=== PATIENT | male | born 1955 | race Caucasian/White ===

== ENCOUNTER → 2016-07-21 | Outpatient (CLI) | payer BC ==
[2016-07-21 11:43] LABS: Basophils # (A) 0.1 k/uL (0-0.2); Basophils % (A) 1 %; CH 31.8; CHCM 33.7; Eosinophils # (A) 0.2 k/uL (0-0.7); Eosinophils % (A) 1 %; HCT 46.9 % (39.0-53.0); HDW 2.37; HGB 15.6 gm/dL (13.0-17.5); Luc # (Auto) 0.21; Luc % (Auto) 2; Lymphocytes # (A) 1.4 k/uL (1.0-4.8); Lymphocytes % (A) 14 %; MCH 31.4 pg (25.0-35.0); MCHC 33.2 g/dL (31.0-37.0); MCV 94.7 fL (80.0-100.0); Mean Platelet Volume 7.6; Monocytes # (A) 0.6 k/uL (0-1.0); Monocytes % (A) 6 %; Neutrophils # (A) 7.9 k/uL (1.3-7.7); Neutrophils % (A) 76 %; RBC 4.96 m/uL (4.30-5.90); RDW 12.6 % (11.5-15.5); WBC 10.5 k/uL (3.8-10.6); WBC (Perox) 10.61
[2016-07-21 11:51] LABS: Uric Acid 7.5 mg/dL (3.5-8.5)
[2016-07-21 11:54] LABS: Rheumatoid Factor, Qnt <9 IU/mL (<12)
[2016-07-21 12:58] LABS: Erythrocyte Sedimentation Rate 6 mm/hr (0-15)
== END | disposition home or self-care (01) ==
LOC: LABWHC1 11:17
PROVIDERS: ATTEND Podiatrist Foot & Ankle Surgery
DX: L08.9 Local infection of the skin and subcutaneous tissue, unspecified (principal); M19.079 Primary osteoarthritis, unspecified ankle and foot
CPT/HCPCS: 36415; 84550; 85025; 85652; 86038; 86431

== ENCOUNTER → 2020-07-03 | Outpatient (CLI) | payer MEDICARE ==
--- NOTE | 2020-07-03 08:12 | XR ---
EXAMINATION TYPE: XR foot complete LT DATE OF EXAM: 07/03/2020 CLINICAL HISTORY: pain TECHNIQUE: Frontal, lateral and oblique images of the left foot are obtained. COMPARISON: None. FINDINGS: There is no acute fracture/dislocation evident. The joint spaces appear within normal ren its. The overlying soft tissue appears unremarkable. IMPRESSION: There is no acute fracture or dislocation. ICD 10 NO FRACTURE, INITIAL EVALUATION
[2020-07-03 08:44] LABS: Basophils # (A) 0.1 k/uL (0-0.2); Basophils % (A) 1 %; Eosinophils # (A) 0.2 k/uL (0-0.7); Eosinophils % (A) 3 %; HGB 16.8 gm/dL (13.0-17.5); Lymphocytes # (A) 1.6 k/uL (1.0-4.8); Lymphocytes % (A) 20 %; MCH 31.3 pg (25.0-35.0); MCHC 33.6 g/dL (31.0-37.0); MCV 93.1 fL (80.0-100.0); Mean Platelet Volume 7.3; Monocytes # (A) 0.5 k/uL (0-1.0); Monocytes % (A) 7 %; Neutrophils # (A) 5.4 k/uL (1.3-7.7); Neutrophils % (A) 69 %; Platelet Count 324 k/uL (150-450); RBC 5.38 m/uL (4.30-5.90); WBC 7.9 k/uL (3.8-10.6)
[2020-07-03 08:53] LABS: Uric Acid 7.7 mg/dL (3.5-8.5)
[2020-07-03 09:10] LABS: C Reactive Protein <5.0 mg/L (<10.0)
[2020-07-03 09:48] LABS: Erythrocyte Sedimentation Rate 6 mm/hr (0-15)
--- NOTE | 2020-07-03 13:07 | NM ---
EXAMINATION TYPE: NM bone 3 phase DATE OF EXAM: 07/03/2020 COMPARISON: NONE HISTORY: M84.375 Stress fracture, left foot Triple phase bone scintigraphy was performed following the injection of 20.0 mCi Tc 99m MDP. Immedia te images and 4.5 hours post injection images acquired. FINDINGS: There is intense uptake involving the tarsal cuboid on all 3 phases of the study compatible with unde rlying fracture. No additional areas of abnormal uptake are seen. IMPRESSION: Findings suggest tarsal cuboid fracture.
[2020-07-03 18:36] LABS: Rheumatoid Factor, Qnt <4 IU/mL (0-15)
== END | disposition home or self-care (01) ==
LOC: RADNMMAIN 07:23
PROVIDERS: ATTEND Podiatrist Foot & Ankle Surgery
DX: M79.672 Pain in left foot (principal); M84.375G Stress fracture, left foot, subsequent encounter for fracture with delayed healing
CPT/HCPCS: 85652; 84550; 85025; 86140; 86431; 86038; 73630; 78315; A9503

== ENCOUNTER 2022-04-19 09:51 | Emergency (ER) | payer MEDICARE ==
[2022-04-19 10:01] VITALS: TEMP 98.1
[2022-04-19] MEDS ORDERED: MORPHINE SULFATE 4 MG/ML SYRINGE IVP STA (11:12)
[2022-04-19] MEDS ORDERED: SODIUM CHLORIDE 0.9% 1,000 ML IV ONE (11:44)
[2022-04-19 12:02] LABS: Basophils % (A) 1 %; Eosinophils # (A) 0.1 k/uL (0-0.7); Eosinophils % (A) 1 %; HCT 48.3 % (39.0-53.0); HGB 16.8 gm/dL (13.0-17.5); Lymphocytes # (A) 1.3 k/uL (1.0-4.8); Lymphocytes % (A) 15 %; MCH 31.7 pg (25.0-35.0); MCHC 34.8 g/dL (31.0-37.0); MCV 91.2 fL (80.0-100.0); Monocytes # (A) 0.5 k/uL (0-1.0); Monocytes % (A) 5 %; Neutrophils # (A) 6.9 k/uL (1.3-7.7); Neutrophils % (A) 78 %; Platelet Count 338 k/uL (150-450); RDW 12.3 % (11.5-15.5)
--- NOTE | 2022-04-19 12:03 | XR ---
EXAMINATION TYPE: XR hand complete RT DATE OF EXAM: 04/19/2022 COMPARISON: None HISTORY: Hand swelling base of third digit TECHNIQUE: 3 view right hand FINDINGS: Soft tissue swelling is over the metacarpal phalangeal joint region. No underlying fracture is evident. Mild diffuse joint space narrowing is present. An old fracture of the index finger metacarpal is likely present. Follow up exams can be performed 7-10 days acute trauma for continued pain. IMPRESSION: 1. No acute osseous abnormality. 2. Soft tissue swelling over the dorsum of the hand at the metacarpal phalangeal joint space region.
[2022-04-19 12:14] LABS: ALT 28 U/L (4-49); AST 27 U/L (17-59); African American GFR (CKD) >90 (>60 ml/min/1.73 sqM); Albumin 4.7 g/dL (3.5-5.0); Alkaline Phosphatase 81 U/L (38-126); Anion Gap 10 mmol/L; Blood Urea Nitrogen 10 mg/dL (9-20); C Reactive Protein 0.8 mg/dL (<1.0); Calcium 9.5 mg/dL (8.4-10.2); Carbon Dioxide 20 mmol/L (22-30); Chloride 107 mmol/L (98-107); Glucose 111 mg/dL (74-99); Non-African American GFR(CKD) >90 (>60 ml/min/1.73 sqM); Potassium 4.3 mmol/L (3.5-5.1); Sodium 137 mmol/L (137-145); Total Bilirubin 0.7 mg/dL (0.2-1.3); Total Protein 7.5 g/dL (6.3-8.2); Uric Acid 9.2 mg/dL (3.5-8.5)
[2022-04-19] MEDS ORDERED: DEXAMETHASONE SOD PHOSPHATE 10 MG/ML 1 ML VIAL IVP STA (12:38)
--- NOTE | 2022-04-19 12:38 | ED ---
General Adult HPI - General Chief complaint: Extremity Injury, Upper Stated complaint: rt hand pain Time Seen by Provider: 04/19/22 11:05 Source: patient Mode of arrival: ambulatory Limitations: no limitations - History of Present Illness Initial comments: Patient is a 66-year-old male with history of gout presenting with chief complaint of right hand pain. Patient has been having some pain and swelling in the right hand near the base of the third digit for a few days. He woke up today there was significant swelling at the base of the third digit and increased pain. No redness or warmth. No fever or chills. No nausea or vomiting. Patient has been taking his colchicine at home for 2 days with no improvement in symptoms. He denies any injury or trauma. - Related Data Home Medications Medication Instructions Recorded Confirmed Multivitamin [Men's Multi-Vitamin] 1 each PO DAILY 07/23/15 08/20/15 Acetaminophen Tab [Tylenol Tab] 650 mg PO Q4-6H PRN 08/20/15 08/20/15 Previous Rx's Medication Instructions Recorded Amoxicillin/Potassium Clav 1 tab PO Q12HR #20 tab 08/21/15 [Augmentin 875-125 Tablet] Indomethacin [Indocin] 50 mg PO TID 7 Days #21 capsule 04/19/22 Sulfamethox-Tmp 800-160Mg [Bactrim 1 tab PO Q12HR 7 Days #14 tab 04/19/22 DS 800-160 mg] Allergies Allergy/AdvReac Type Severity Reaction Status Date / Time Penicillins Allergy Unknown Verified 04/19/22 10:01 Review of Systems ROS Statement: Those systems with pertinent positive or pertinent negative responses have been documented in the HPI. ROS Other: All systems not noted in ROS Statement are negative. Past Medical History Past Medical History: No Reported History History of Any Multi-Drug Resistant Organisms: None Reported Additional Past Surgical History / Comment(s): tooth extraction. Past Anesthesia/Blood Transfusion Reactions: No Reported Reaction Past Psychological History: No Psychological Hx Reported Smoking Status: Never smoker Past Alcohol Use History: Occasional Past Drug Use History: None Reported - Past Family History Brother(s) Family Medical History: Cancer Additional Family Medical History / Comment(s): Pancreatic cancer General Exam Limitations: no limitations General appearance: alert, in no apparent distress Head exam: Present: atraumatic, normocephalic, normal inspection Eye exam: Present: normal appearance Neck exam: Present: normal inspection Respiratory exam: Present: normal lung sounds bilaterally. Absent: respiratory distress, wheezes, rales, rhonchi, stridor Cardiovascular Exam: Present: regular rate, normal rhythm, normal heart sounds. Absent: systolic murmur, diastolic murmur, rubs, gallop, clicks Right Hand Wrist exam: Present: tenderness, swelling. Absent: erythema (area does not feel hot to touch) Neuro motor exam: Present: wrist extension intact, thumb opposition intact, thumb IP flexion intact, thumb adduction intact, fingers 2-5 abduction intact Vascular: Absent: vascular compromise Neurological exam: Present: alert, oriented X3, CN II-XII intact Psychiatric exam: Present: normal affect, normal mood Skin exam: Present: warm, dry, intact, normal color. Absent: rash Course Vital Signs 04/19/22 04/19/22 09:58 12:00 Temperature 98.1 F Pulse Rate 60 Respiratory 18 Rate Blood Pressure 202/105 173/92 O2 Sat by Pulse 99 Oximetry Medical Decision Making - Medical Decision Making Patient is a 66-year-old male history of gout presenting with chief complaint of right hand pain. No injury or trauma. On examination there is tenderness and swelling over the base of the third digit, no erythema, wound is not extremely warm on palpation. No fever or chills. CBC shows no leukocytosis or anemia. CRP is 0.8. ESR sent out. Uric acid is 9.2. Lactic acid is 0.9. X-ray of the hand by my interpretation shows no acute osseous abnormality, there is soft tissue swelling noted over the dorsum of the hand. Patient is educated on these findings, symptoms are likely due to gout. Patient is given a dose of Decadron here in the ER and is prescribed indomethacin 3 times a day for 7 days. Prescription is sent for Bactrim, patient is instructed to take antibiotic in the event of worsening symptoms. Patient has an appointment with Dr. Kumar this , I encouraged him to keep that appointment for reevaluation.Follow-up with PCP. Report back to ER with any new or worsening symptoms. Discussed return parameters and answered all questions. Patient conveyed verbal understanding and agreed to the plan. I discussed this case in detail with my attending Dr. Osborne - Lab Data Result diagrams: 04/19/22 11:37 04/19/22 11:37 Lab Results 04/19/22 04/19/22 04/19/22 Range/Units 11:37 11:37 11:37 WBC 9.0 (3.8-10.6) k/uL RBC 5.30 (4.30-5.90) m/uL Hgb 16.8 (13.0-17.5) gm/dL Hct 48.3 (39.0-53.0) % MCV 91.2 (80.0-100.0) fL MCH 31.7 (25.0-35.0) pg MCHC 34.8 (31.0-37.0) g/dL RDW 12.3 (11.5-15.5) % Plt Count 338 (150-450) k/uL MPV 8.0 Neutrophils % 78 % Lymphocytes % 15 % Monocytes % 5 % Eosinophils % 1 % Basophils % 1 % Neutrophils # 6.9 (1.3-7.7) k/uL Lymphocytes # 1.3 (1.0-4.8) k/uL Monocytes # 0.5 (0-1.0) k/uL Eosinophils # 0.1 (0-0.7) k/uL Basophils # 0.0 (0-0.2) k/uL Sodium 137 (137-145) mmol/L Potassium 4.3 (3.5-5.1) mmol/L Chloride 107 (98-107) mmol/L Carbon Dioxide 20 L (22-30) mmol/L Anion Gap 10 mmol/L BUN 10 (9-20) mg/dL Creatinine 0.74 (0.66-1.25) mg/dL Est GFR (CKD-EPI)AfAm >90 (>60 ml/min/1.73 sqM) Est GFR (CKD-EPI)NonAf >90 (>60 ml/min/1.73 sqM) Glucose 111 H (74-99) mg/dL Plasma Lactic Acid Jaun 0.9 (0.7-2.0) mmol/L Uric Acid 9.2 H (3.5-8.5) mg/dL Calcium 9.5 (8.4-10.2) mg/dL Total Bilirubin 0.7 (0.2-1.3) mg/dL AST 27 (17-59) U/L ALT 28 (4-49) U/L Alkaline Phosphatase 81 (38-126) U/L C-Reactive Protein 0.8 (<1.0) mg/dL Total Protein 7.5 (6.3-8.2) g/dL Albumin 4.7 (3.5-5.0) g/dL Disposition Clinical Impression: Gout Disposition: HOME SELF-CARE Condition: Good Instructions (If sedation given, give patient instructions): Low Purine Diet (ED), Gout (ED) Additional Instructions: Follow-up with PCP in one to 2 days. Report back to ER with any worsening symptoms. Take medication as prescribed. Begin taking antibiotics if you develop fever, redness, or any other worsening of symptoms. Prescriptions: Sulfamethox-Tmp 800-160Mg [Bactrim DS 800-160 mg] 1 tab PO Q12HR 7 Days #14 tab Indomethacin [Indocin] 50 mg PO TID 7 Days #21 capsule Is patient prescribed a controlled substance at d/c from ED?: No Referrals: Kody Del Castillo Jr, [Primary Care Provider] - 1-2 days Time of Disposition: 12:32
[2022-04-19 13:39] LABS: Erythrocyte Sedimentation Rate 5 mm/hr (0-15)
[2022-04-19 14:44] VITALS: BP 170/90; PULSE 65; RESP 16
== END 2022-04-19 13:00 | disposition home or self-care (01) ==
LOC: EC 09:51
DX: M10.9 Gout, unspecified (principal); Z88.0 Allergy status to penicillin
CPT/HCPCS: 36415; 80053; 85652; 83605; 84550; 85025; 86140; 87040; 73130; 99283; 96374; 96375; 96361; J2270; J1100; 99284

== ENCOUNTER → 2023-05-30 | Outpatient (CLI) | payer MEDICARE ==
--- NOTE | 2023-05-30 16:37 | XR ---
EXAMINATION TYPE: XR cervical spine w flex/ext DATE OF EXAM: 05/30/2023 COMPARISON: None HISTORY: Left arm prestigious TECHNIQUE: 5 view cervical spine supplemented with flexion and extension views in the sagittal plane FINDINGS: Prevertebral space is normal. Posterior spinal lamellar line is intact. Vertebral body alig nment is preserved through flexion and extension and neutral positions. Mild posterior disc space narrowing is present C4-5 C5-6 C6-7. Mild foraminal narrowing is present at C4-5 on the right C5-6 on the left. Remaining foramen are patent. Odontoid appears unremarkable IMPRESSION: 1. Mild degenerative disc changes mid cervical spine discussed above. 2. Mild foraminal narrowing present right C4-5 and left C5-6.
== END | disposition home or self-care (01) ==
LOC: RADXRMAIN 10:21
PROVIDERS: ATTEND Family Medicine
DX: M50.321 Other cervical disc degeneration at C4-C5 level (principal); M99.71 Connective tissue and disc stenosis of intervertebral foramina of cervical region; R20.2 Paresthesia of skin
CPT/HCPCS: 72052

== ENCOUNTER 2023-12-28 14:34 | Emergency (ER) | payer MEDICARE | END 2023-12-28 15:42 | disposition home or self-care (01) | LOC: EC 14:34 | CPT/HCPCS: 69200; 99282 ==

== ENCOUNTER 2024-11-01 08:44 | Inpatient (IN) | payer MEDICARE ==
[2024-11-01 09:14] LABS: Basophils # (A) 0.07 10*3/uL (0.00-0.10); Basophils % (A) 0.8 %; Eosinophils # (A) 0.19 10*3/uL (0.04-0.35); Eosinophils % (A) 2.3 %; HCT 47.3 % (39.6-50.0); HGB 16.2 g/dL (13.0-17.0); Lymphocytes # (A) 2.04 10*3/uL (0.90-5.00); Lymphocytes % (A) 24.7 %; MCH 31.6 pg (27.0-32.0); MCHC 34.2 g/dL (32.0-37.0); MCV 92.4 fL (80.0-97.0); Mean Platelet Volume 9.4 fL (9.5-12.2); Monocytes # (A) 0.58 10*3/uL (0.20-1.00); Neutrophils # (A) 5.33 10*3/uL (1.80-7.70); Neutrophils % (A) 64.7 %; Platelet Count 328 10*3/uL (140-440); RBC 5.12 10*6/uL (4.40-5.60); RDW 13.1 % (11.5-14.5); WBC 8.25 10*3/uL (4.50-10.00)
[2024-11-01 09:24] LABS: INR 0.9 (<1.2); Partial Thromboplastin Time 24.4 sec (22.0-30.0); Prothrombin Time 10.3 sec (10.0-12.5)
[2024-11-01 09:26] LABS: ALT 28 U/L (4-49); AST 29 U/L (17-59); African American GFR (CKD) >90 (>60 ml/min/1.73 sqM); Albumin 4.4 g/dL (3.5-5.0); Alkaline Phosphatase 70 U/L (38-126); Anion Gap 10 mmol/L; Blood Urea Nitrogen 17 mg/dL (9-20); Calcium 9.5 mg/dL (8.4-10.2); Carbon Dioxide 24 mmol/L (22-30); Chloride 104 mmol/L (98-107); Glucose 106 mg/dL (74-99); Non-African American GFR(CKD) 85 (>60 ml/min/1.73 sqM); Potassium 4.3 mmol/L (3.5-5.1); Sodium 138 mmol/L (137-145); Total Bilirubin 0.6 mg/dL (0.2-1.3); Total Protein 6.9 g/dL (6.3-8.2)
--- NOTE | 2024-11-01 09:38 | XR ---
EXAMINATION TYPE: XR chest 2V DATE OF EXAM: 11/01/2024 9:18 AM COMPARISON: Chest radiographs from 05/18/2010 CLINICAL INDICATION: Male, 68 years old with history of Chest Pain; [facility] TECHNIQUE: XR chest 2V Frontal and lateral views of the chest. FINDINGS: Lungs/Pleura: There is no evidence of pleural effusion, focal consolidation, or pneumothorax. Pulmonary vascularity: Unremarkable. Heart/mediastinum: Cardiomediastinal silhouette is unremarkable. Musculoskeletal: No acute osseous pathology. IMPRESSION: No acute cardiopulmonary disease/process. [facility], , 11/01/2024 9:35 AM
[2024-11-01] MEDS ORDERED: HEPARIN SODIUM 1,000 UN/ML (10ML VL) IV PRN (10:12)
[2024-11-01] MEDS ORDERED: NALOXONE 0.4 MG/ML 1 ML VIAL IV PRN (10:45)
[2024-11-01] MEDS ORDERED: ONDANSETRON 4 MG/2 ML VIAL IVP PRN (10:45)
[2024-11-01] MEDS: ASPIRIN 81 MG PO STA (11:02)
--- NOTE | 2024-11-01 11:11 | ED ---
General Adult HPI - General Chief complaint: Chest Pain Stated complaint: Chest pain Time Seen by Provider: 11/01/24 10:00 Source: patient, RN notes reviewed, old records reviewed Mode of arrival: ambulatory Limitations: no limitations - History of Present Illness Initial comments: Patient is a 68-year-old male presents emergency department complaint of chest pain. Past medical history significant for hypertension. Has been under more stress lately as his has been hospitalized. States that over the last 2 weeks he has been feeling off and has noticed when he does exertional activity he gets significant chest pain. States it is substernal and does not radiate. Unknown regarding nausea or vomiting or diaphoresis regarding it. States that it resolves with rest but it is severe 10 out of 10 pain in his present. Currently has no chest pain. Went to visit his doctor and told him this who sent him to the ER for admission for cardiac evaluation. He currently has no chest pain. Workup was started in triage. I evaluated patient in the waiting room. He has a history of high blood pressure, but otherwise denies any chest p ain, shortness of breath, abdominal pain, nausea, vomiting. States the chest pain is only present with exertion and never at rest. Resolves with rest. Presents for further evaluation at this time. - Related Data Home Medications Medication Instructions Recorded Confirmed allopurinoL [Zyloprim] 300 mg PO DAILY 11/01/24 11/01/24 lisinopriL [Zestril] 5 mg PO DAILY 11/01/24 11/01/24 Allergies Allergy/AdvReac Type Severity Reaction Status Date / Time Penicillins Allergy Unknown Verified 11/01/24 14:04 Review of Systems ROS Statement: Those systems with pertinent positive or pertinent negative responses have been documented in the HPI. Review of Systems: CONST: Denies fever EYES: Denies blurry vision ENT: Denies nasal congestion C/V: Denies current chest pain RESP: Denies shortness of breath GI: Denies abdominal pain : Denies dysuria SKIN: Denies rash. MSK: Denies joint pain. NEURO: Denies headache ROS Other: All systems not noted in ROS Statement are negative. Past Medical History Past Medical History: No Reported History History of Any Multi-Drug Resistant Organisms: None Reported Additional Past Surgical History / Comment(s): tooth extraction. Past Anesthesia/Blood Transfusion Reactions: No Reported Reaction Past Psychological History: No Psychological Hx Reported Smoking Status: Never smoker Past Alcohol Use History: Occasional Past Drug Use History: None Reported - Past Family History Brother(s) Family Medical History: Cancer Additional Family Medical History / Comment(s): Pancreatic cancer General Exam - General Exam Comments Initial Comments: General: Appears in no acute distress. HEAD: Normal with no signs of head trauma. EYES: PERRLA, EOMI, conjunctiva normal, no discharge. ENT: Hearing grossly intact, normal oropharynx. RESPIRATORY: Clear breath sounds bilaterally. No wheezes, rales, or rhonchi. C/V: Regular rate and rhythm. S1 and S2 auscultated, no edema, peripheral pulses 2+ and intact throughout ABD: Abd is soft, nontender, nondistended EXT: Normal range of motion, no obvious deformity SKIN: No rashes or lesions observed on exposed skin. NEURO: Alert and oriented x 4. Limitations: no limitations Course Vital Signs 11/01/24 11/01/24 11/01/24 08:45 11:22 13:00 Temperature 97.9 F 98.0 F Pulse Rate 60 57 L 58 L Respiratory 20 22 22 Rate Blood Pressure 196/101 153/90 146/81 O2 Sat by Pulse 98 100 98 Oximetry 11/01/24 14:12 Temperature Pulse Rate 61 Respiratory 22 Rate Blood Pressure 143/98 O2 Sat by Pulse 97 Oximetry Medical Decision Making - Medical Decision Making Was pt. sent in by a medical professional or institution (, PA, RAFTSMAN, urgent care, hospital, or longterm...) When possible be specific @ -Spoke with patient's PCP Dr. Del Castillo who sent the patient in for evaluation and admission for cardiac evaluation Did you speak to anyone other than the patient for history (EMS, parent, family, police, friend...)? What history was obtained from this source @ -I spoke with patient's daughter who assist with patient's past medical history. Did you review nursing and triage notes (agree or disagree)? Why? @ -I reviewed and agree with nursing and triage notes Were old charts reviewed (outside hosp., previous admission, EMS record, old EKG, old radiological studies, urgent care reports/EKG's, longterm records)? Report findings @ -EKG from July 2015 with no significant acute change. Differential Diagnosis (chest pain, altered mental status, abdominal pain women, abdominal pain men, vaginal bleeding, weakness, fever, dyspnea, syncope, headache, dizziness, GI bleed, back pain, seizure, CVA, palpatations, mental health, musculoskeletal)? @ -Differential Chest Pain: Stable Angina, Unstable Angina, STEMI, NSTEMI Aortic Dissection, Pneumothorax, Musculoskeletal, Esophageal Spasm GERD, Cholecystitis, Pancreatitis, Zoster, this is not meant to be an all-inclusive list. EKG interpreted by me (3pts min.). @ -As above X-rays interpreted by me (1pt min.). @ -Chest x-ray reveals no obvious acute cardiopulmonary process. CT interpreted by me (1pt min.). @ -None done U/S interpreted by me (1pt. min.). @ -None done What testing was considered but not performed or refused? (CT, X-rays, U/S, labs)? Why? @ -None What meds were considered but not given or refused? Why? @ -None Did you discuss the management of the patient with other professionals (professionals i.e. , PA, RAFTSMAN, lab, RT, psych nurse, social work associate, content coordinator, teacher, human resources officer, adult protective caseworker)? Give summary @ -Discussed with admitting provider, Dr. Del Castillo who accepted the admission. Was smoking cessation discussed for >3mins.? @ -No Was critical care preformed (if so, how long)? @ -Yes, 32 minutes Were there social determinants of health that impacted care today? How? (Homelessness, low income, unemployed, alcoholism, drug addiction, transportation, low edu. Level, literacy, decrease access to med. care, [facility], rehab)? @ -No Was there de-escalation of care discussed even if they declined (Discuss DNR or withdrawal of care, Hospice)? DNR status @ -No What co-morbidities impacted this encounter? (DM, HTN, Smoking, COPD, CAD, Cancer, CVA, ARF, Chemo, Hep., AIDS, mental health diagnosis, sleep apnea, morbid obesity)? @ -Hypertension Was patient admitted / discharged? Hospital course, mention meds given and route, prescriptions, significant lab abnormalities, going to OR and other pertinent info. @ -Patient presents for admission for cardiac evaluation. Has been having exer tional chest pain on and off for the last 2 weeks. Currently is chest pain- free. Patient originally had workup started in the waiting room. I evaluated the patient after workup was completed. Vital signs are within acceptable limits. Laboratory studies remarkable for an elevated troponin of 1.01. EKG shows chronic findings dating back to July 2015 with J-point elevation but no obvious acute ischemic process. Chest x-ray unremarkable. I updated the patient at this time and he will be admitted. He is given 324 mg of aspirin. He is started on a heparin drip. He is made NPO. He is started on IV fluids. Echo ordered. Consult placed to cardiology. I spoke with the admitting provider, Dr. Del Castillo who accepted the admission. He remains chest pain-free at this time. Undiagnosed new problem with uncertain prognosis? @ -No Drug Therapy requiring intensive monitoring for toxicity (Heparin, Nitro, Insulin, Cardizem)? @ -No Were any procedures done? @ -No Diagnosis/symptom? @ -NSTEMI Acute, or Chronic, or Acute on Chronic? @ -Acute Uncomplicated (without systemic symptoms) or Complicated (systemic symptoms)? @ -Complicated Side effects of treatment? @ -No Exacerbation, Progression, or Severe Exacerbation? @ -No Poses a threat to life or bodily function? How? (Chest pain, USA, DC, pneumonia, PE, COPD, DKA, ARF, appy, cholecystitis, CVA, Diverticulitis, Homicidal, Suici niko, threat to staff... and all critical care pts) @ -Yes - Lab Data Result diagrams: 11/01/24 08:48 11/01/24 08:48 Lab Results 11/01/24 11/01/24 11/01/24 Range/Units 08:48 08:48 08:48 WBC 8.25 (4.50-10.00) 10*3/uL RBC 5.12 (4.40-5.60) 10*6/uL Hgb 16.2 (13.0-17.0) g/dL Hct 47.3 (39.6-50.0) % MCV 92.4 (80.0-97.0) fL MCH 31.6 (27.0-32.0) pg MCHC 34.2 (32.0-37.0) g/dL Plt Count 328 (140-440) 10*3/uL MPV 9.4 L (9.5-12.2) fL Immature Gran % (Auto) 0.5 % Neutrophils % 64.7 % Lymphocytes % 24.7 % Monocytes % 7.0 % Eosinophils % 2.3 % Basophils % 0.8 % Immature Gran # 0.04 (0.00-0.04) 10*3/uL Neutrophils # 5.33 (1.80-7.70) 10*3/uL Lymphocytes # 2.04 (0.90-5.00) 10*3/uL Monocytes # 0.58 (0.20-1.00) 10*3/uL Eosinophils # 0.19 (0.04-0.35) 10*3/uL Basophils # 0.07 (0.00-0.10) 10*3/uL PT 10.3 (10.0-12.5) sec INR 0.9 (<1.2) APTT 24.4 (22.0-30.0) sec Sodium 138 (137-145) mmol/L Potassium 4.3 (3.5-5.1) mmol/L Chloride 104 (98-107) mmol/L Carbon Dioxide 24 (22-30) mmol/L Anion Gap 10 mmol/L BUN 17 (9-20) mg/dL Creatinine 0.91 (0.66-1.25) mg/dL Est GFR (CKD-EPI)AfAm >90 (>60 ml/min/1.73 sqM) Est GFR (CKD-EPI)NonAf 85 (>60 ml/min/1.73 sqM) Glucose 106 H (74-99) mg/dL Calcium 9.5 (8.4-10.2) mg/dL Magnesium 2.0 (1.6-2.3) mg/dL Total Bilirubin 0.6 (0.2-1.3) mg/dL AST 29 (17-59) U/L ALT 28 (4-49) U/L Alkaline Phosphatase 70 (38-126) U/L Troponin I (0.000-0.034) ng/mL Total Protein 6.9 (6.3-8.2) g/dL Albumin 4.4 (3.5-5.0) g/dL 11/01/24 Range/Units 08:48 WBC (4.50-10.00) 10*3/uL RBC (4.40-5.60) 10*6/uL Hgb (13.0-17.0) g/dL Hct (39.6-50.0) % MCV (80.0-97.0) fL MCH (27.0-32.0) pg MCHC (32.0-37.0) g/dL Plt Count (140-440) 10*3/uL MPV (9.5-12.2) fL Immature Gran % (Auto) % Neutrophils % % Lymphocytes % % Monocytes % % Eosinophils % % Basophils % % Immature Gran # (0.00-0.04) 10*3/uL Neutrophils # (1.80-7.70) 10*3/uL Lymphocytes # (0.90-5.00) 10*3/uL Monocytes # (0.20-1.00) 10*3/uL Eosinophils # (0.04-0.35) 10*3/uL Basophils # (0.00-0.10) 10*3/uL PT (10.0-12.5) sec INR (<1.2) APTT (22.0-30.0) sec Sodium (137-145) mmol/L Potassium (3.5-5.1) mmol/L Chloride (98-107) mmol/L Carbon Dioxide (22-30) mmol/L Anion Gap mmol/L BUN (9-20) mg/dL Creatinine (0.66-1.25) mg/dL Est GFR (CKD-EPI)AfAm (>60 ml/min/1.73 sqM) Est GFR (CKD-EPI)NonAf (>60 ml/min/1.73 sqM) Glucose (74-99) mg/dL Calcium (8.4-10.2) mg/dL Magnesium (1.6-2.3) mg/dL Total Bilirubin (0.2-1.3) mg/dL AST (17-59) U/L ALT (4-49) U/L Alkaline Phosphatase (38-126) U/L Troponin I 1.010 H* (0.000-0.034) ng/mL Total Protein (6.3-8.2) g/dL Albumin (3.5-5.0) g/dL - EKG Data -: EKG Interpreted by Me EKG Comments: 12-lead Electrocardiogram Interpretation Note EKG was reviewed and interpreted by myself. 12-lead ECG performed at 0852 is interpreted by me as revealing sinus bradycardia at a rate of 58 beats per minute. Burgin is normal. AR interval is 167 ms, QRS durations 88 ms, QTc is 391 ms. Patient does have somewhat diffuse J-point elevation in the precordial as well as inferior leads which is seen on prior EKGs from 2016. There were no obv ious acute ST or T wave abnormalities to suggest myocardial ischemia or injury. R wave progression across the precordium was satisfactory. 12-lead Electrocardiogram Interpretation Note EKG was reviewed and interpreted by myself. 12-lead ECG performed at 1110 is interpreted by me as revealing sinus bradycardia at a rate of 56 beats per minute. Burgin is normal. AR interval is 164 ms, QRS duration is 106 ms, QTc is 409 ms.. Redemonstration of the J-point elevations seen throughout that seems c hronic when compared with EKG from 2016. No obvious dynamic changes when compared with EKG from earlier. There were no ST or T wave abnormalities to suggest myocardial ischemia or injury. R wave progression across the precordium was satisfactory.. Critical Care Time Critical Care Time: Yes Total Critical Care Time: 32 Disposition Clinical Impression: Acute non-ST elevation myocardial infarction (NSTEMI) Disposition: ADMITTED IP TO THIS HOSP Condition: Stable Time of Disposition: 10:55
[2024-11-01] MEDS: HEPARIN SODIUM 1,000 UN/ML (10ML VL) IV ONE (11:16)
[2024-11-01] MEDS: HEPARIN SOD,PORK IN 0.45% NACL 25,000 UNIT in 0.45% NACL 1 250ML.BAG IV SCH (11:17)
[2024-11-01] MEDS: SODIUM CHLORIDE 0.9% 1,000 ML IV SCH (11:21)
--- NOTE | 2024-11-01 14:50 | P.HPIM ---
History of Present Illness Chief Complaint: Chest pain This is a pleasant 68-year-old gentleman with past medical history significant for hypertension ,under significant stress as his with cancer hospitalized. Reports he has had on and off nonradiating midsternal chest pain over the last couple of weeks, worsened on Monday when patient was mowing the lawn in the hot 84 degrees heat.reports he developed 10 out of 10 midsternal chest pain accompanied by diaphoresis and shortness of breath .reports worsened by exertional activity, relieved with rest. He proceeded inside, as his pain increased to 10/10, reclined back in his recliner, and drank some ice cold water. Within an hour, pain had subsided. Does not recall nausea or vomiting. evaluated by his PCP Dr. Del Castillo this morning and patient was transferred by EMS to the ER for further cardiac evaluation. On admission patient was hypertensive with a blood pressure 196/101. currently denies chest pain, palpitations or shortness of breath. Troponins are elevated at 1.010, 0.783 .EKG reported sinus bradycardia. Chest x-ray reported no acute cardiopulmonary disease process. H ematology, coagulation unremarkable. Electrolytes, renal function stable. Patient does disclose that years ago he did have a normal stress test during a cardiac workup prior to having knee surgery. Review of Systems ROS Statement: Those systems with pertinent positive or pertinent negative responses have been documented in the HPI. ROS Other: All systems not noted in ROS Statement are negative. Past Medical History Past Medical History: No Reported History History of Any Multi-Drug Resistant Organisms: None Reported Additional Past Surgical History / Comment(s): tooth extraction. Past Anesthesia/Blood Transfusion Reactions: No Reported Reaction Past Psychological History: No Psychological Hx Reported Smoking Status: Never smoker Past Alcohol Use History: Occasional Past Drug Use History: None Reported - Past Family History Brother(s) Family Medical History: Cancer Additional Family Medical History / Comment(s): Pancreatic cancer Medications and Allergies Home Medications Medication Instructions Recorded Confirmed Type allopurinoL [Zyloprim] 300 mg PO DAILY 11/01/24 11/01/24 History lisinopriL [Zestril] 5 mg PO DAILY 11/01/24 11/01/24 History Allergies Allergy/AdvReac Type Severity Reaction Status Date / Time Penicillins Allergy Unknown Verified 11/01/24 14:04 Physical Exam Vitals: Vital Signs Temp Pulse Resp BP Pulse Ox 11/01/24 14:12 61 22 143/98 97 11/01/24 13:00 58 L 22 146/81 98 11/01/24 11:22 98.0 F 57 L 22 153/90 100 11/01/24 08:45 97.9 F 60 20 196/101 98 Intake and Output 10/31/24 11/01/24 11/01/24 22:59 06:59 14:59 Other: Weight 72.121 kg PHYSICAL EXAM: VITAL SIGNS: [Reviewed] GENERAL: Pleasant, alert and oriented x 3, no acute distress HEENT: Normocephalic, atraumatic, conjunctivae normal. eyes normal. NECK: Supple, no JVD. No thyroid enlargement. No LNs CARDIOVASCULAR: S1, S2, regular rhythm and rate. No murmur RESPIRATION: Unlabored, equal air entry, essentially clear to auscultation. ABDOMEN: Soft, nondistended, nontender . No guarding. no masses palpable. No ascites, No hepatosplenomegaly.Bowel sounds heard. LEGS: No edema. no swelling NERVOUS SYSTEM: Cranial N 2-12 grossly normal. No focal deficits. Strength and sensation grossly intact. Skin: Warm and dry, no rash Results CBC & Chem 7: 11/01/24 08:48 11/01/24 08:48 Labs: Abnormal Lab Results - Last 24 Hours (Table) 11/01/24 11/01/24 11/01/24 Range/Units 08:48 08:48 08:48 MPV 9.4 L (9.5-12.2) fL Glucose 106 H (74-99) mg/dL Troponin I 1.010 H* (0.000-0.034) ng/mL 11/01/24 Range/Units 11:23 MPV (9.5-12.2) fL Glucose (74-99) mg/dL Troponin I 0.783 H* (0.000-0.034) ng/mL Assessment and Plan Assessment: Acute NSTEMI, troponins 1.010, 0.783, in a patient has been under significant personal stress Hypertension Plan: Continue on current medication regimen ,monitoring and symptomatic treatment. Telemetry monitoring,received aspirin, anticoagulated on heparin drip, IV fluid hydration. Echo ordered. NPO,cardiology consult in place with recommendations pending. The impression and plan of care has been dictated as directed. : I performed a history and examination of this patient, discussed the same with the dictator. I agree with the dictator's note ,documented as a scribe. Any additional findings or plans will be noted.
--- NOTE | 2024-11-01 18:25 | CA ---
Transthoracic Echo Report Name: Guido Garcia Age: 68 Gender: M : 1955 Exam Date: 11/01/2024 12:53 Exam Location: [place] [facility] Ht (in): 63 Wt (lb): 159 Ordering Physician: Matthew Leon MD Attending/Referring Phys: Dial Lathe Operator Isa Sunshine RDCS Procedure CPT: Indications: nstemi Cardiac Hx: Technical Quality: Fair Contrast 1: Total Dose (mL): Contrast 2: Total Dose (mL): MEASUREMENTS (Male / Female) Normal Values 2D ECHO LV Diastolic Diameter PLAX 3.3 cm 4.2 - 5.9 / 3.9 - 5.3 cm LV Systolic Diameter PLAX 2.3 cm IVS Diastolic Thickness 1.4 cm 0.6 - 1.0 / 0.6 - 0.9 cm LVPW Diastolic Thickness 1.2 cm 0.6 - 1.0 / 0.6 - 0.9 cm LV Relative Wall Thickness 0.8 RV Internal Dim ED PLAX 3.7 cm LA Systolic Diameter LX 3.5 cm 3.0 - 4.0 / 2.7 - 3.8 cm LV Diastolic Volume MOD 4C 99.3 cm??? LV Systolic Volume MOD 4C 45.8 cm??? LV Ejection Fraction MOD 4C 53.8 % LV Cardiac Index MOD 4C 1741.1 cm???/min???m??? LV Diastolic Length 4C 8.7 cm LV Systolic Length 4C 7.2 cm LV Diastolic Volume MOD 2C 93.5 cm??? LV Systolic Volume MOD 2C 45.1 cm??? LV Ejection Fraction MOD 2C 51.8 % LV Cardiac Index MOD 2C 1577.6 cm???/min???m??? LV Diastolic Length 2C 8.6 cm LV Systolic Length 2C 7.1 cm LA Volume 54.6 cm??? 18 - 58 / 22 - 52 cm??? LA Volume Index 30.1 cm???/m??? 16 - 28 cm???/m??? M-MODE Aortic Root Diameter MM 3.5 cm AV Cusp Separation MM 2.4 cm DOPPLER AV Peak Velocity 109.4 cm/s AV Peak Gradient 4.8 mmHg MV Area PHT 2.8 cm??? Mitral E Point Velocity 106.3 cm/s Mitral A Point Velocity 92.8 cm/s Mitral E to A Ratio 1.1 MV Deceleration Time 267.8 ms TR Peak Velocity 222.1 cm/s TR Peak Gradient 19.7 mmHg Right Ventricular Systolic Press 24.1 mmHg FINDINGS Left Ventricle Left ventricular ejection fraction is estimated at 55-60 %. Normal left ventricular systolic function with no obvious regional wall motion abnormalities. Mildly increased left ventricular wall thickness. Right Ventricle Mild right ventricular dilatation. Right ventricular systolic pressure within normal limits. Right Atrium Normal right atrial size. No right atrial thrombus or mass seen. Left Atrium Mildly increased left atrial volume. No left atrial thrombus or mass present. Mitral Valve Structurally normal mitral valve. No mitral stenosis, or prolapse.trace to mild mitral regurgitation. Mitral annular calcification. Aortic Valve Trileaflet aortic valve. No aortic valve stenosis or regurgitation. Tricuspid Valve Structurally normal tricuspid valve. No tricuspid stenosis, regurgitation or prolapse. Pulmonic Valve Pulmonic valve not well visualized. No pulmonic regurgitation. Pericardium No pericardial effusion. Aorta Normal size aortic root and proximal ascending aorta. CONCLUSIONS 1. Normal left ventricular size and systolic function 2. Trace to mild mitral regurgitation Previewed by: Dr. Cory Varela MD (Electronically Signed) Final Date: 01 November 2024 18:25
[2024-11-02] MEDS: lisinopriL 5 MG TAB PO SCH (01:15)
[2024-11-02] MEDS ORDERED: ALPRAZolam 0.25 MG TAB PO PRN (08:19)
[2024-11-02] MEDS ORDERED: NITROGLYCERIN SL TABS 0.4 MG TAB SUBLINGUAL PRN (08:19)
[2024-11-02] MEDS: METOPROLOL TARTRATE 25 MG TAB PO SCH (08:43)
[2024-11-02] MEDS: ASPIRIN 325 MG TAB PO STA (08:43)
[2024-11-02] MEDS: lisinopriL 10 MG TAB PO SCH (08:43)
[2024-11-02] MEDS: ATORVASTATIN 80 MG TAB PO STA (08:43)
[2024-11-02] MEDS: SODIUM CHLORIDE 0.9% 1,000 ML in EMPTY BAG 1 BAG IV SCH ×2 (08:43→14:14)
[2024-11-02] MEDS: ASPIRIN 81 MG PO SCH (08:47)
[2024-11-02 09:26] LABS: Basophils # (A) 0.03 10*3/uL (0.00-0.10); Basophils % (A) 0.4 %; Eosinophils # (A) 0.19 10*3/uL (0.04-0.35); Eosinophils % (A) 2.5 %; HCT 43.6 % (39.6-50.0); Lymphocytes # (A) 1.65 10*3/uL (0.90-5.00); Lymphocytes % (A) 21.7 %; MCH 31.8 pg (27.0-32.0); MCHC 34.4 g/dL (32.0-37.0); MCV 92.6 fL (80.0-97.0); Mean Platelet Volume 9.6 fL (9.5-12.2); Monocytes # (A) 0.42 10*3/uL (0.20-1.00); Monocytes % (A) 5.5 %; Neutrophils # (A) 5.29 10*3/uL (1.80-7.70); Neutrophils % (A) 69.4 %; Platelet Count 271 10*3/uL (140-440); RBC 4.71 10*6/uL (4.40-5.60); RDW 13.2 % (11.5-14.5); WBC 7.62 10*3/uL (4.50-10.00)
--- NOTE | 2024-11-02 09:31 | P.CRDCN ---
History of Present Illness History of present illness: HISTORY OF PRESENT ILLNESS: This is a 68-year-old male with no significant past medical history. Patient does not follow with a designer/writer. We have been asked to see the patient in consultation for non-STEMI. Patient examined at the bedside. Patient states on Monday he was mowing the lawn when he started to have chest discomfort. He states that the pain was in the middle of his chest. He also reports feeling diaphoretic and short of breath. He states it was hot that day though so he was not sure if it was related to the weather. He did go inside and rested and had relief of his pain. He states he has been under a lot of stress lately as his is also currently hospitalized. Patient was found to have elevated troponins and was started on IV heparin. At the time of examination, patient denies any chest pain or pressure. DIAGNOSTICS: - EKG reveals sinus mechanism with no signs of acute ischemia. - Chest xray negative for acute process. - Laboratory data: WBC 8.25. Hemoglobin 16.2. Platelet count 328. Sodium 138. Potassium 4.3. BUN 17. Creatinine 0.91. Troponin 1.010. 0.783. - Current home cardiac medications include lisinopril 5 mg daily - 2D echo obtained this admission reveals EF 55 to 60%, trace to mild mitral regurgitation REVIEW OF SYSTEMS: At the time of my exam: CONSTITUTIONAL: Denies fever or chills. HEENT: Denies blurred vision, vision changes, or eye pain. Denies hemoptysis CARDIOVASCULAR: Denies chest pain. Denies orthopnea. Denies PND. Denies palpitations RESPIRATORY: Denies shortness of breath. GASTROINTESTINAL: Denies abdominal pain. Denies nausea or vomiting. HEMATOLOGIC: Denies bleeding disorders. GENITOURINARY: Denies any blood in urine. SKIN: Denies pruitis. Denies rash. PHYSICAL EXAM: VITAL SIGNS: Reviewed. GENERAL: Well-developed in no acute distress. HEENT: Head is normocephalic. Pupils are equal, round. Sclerae anicteric. Mucous membranes of the mouth are moist. Neck supple. No JVD or thyromegaly LUNGS: Respirations even and unlabored. Lungs essentially clear to auscultation bilaterally. HEART: Regular rate and rhythm. S1 and S2 heard. ABDOMEN: Soft. Nondistended. Nontender. EXTREMITIES: Normal range of motion. No clubbing or cyanosis. Peripheral pulses intact. No lower extremity edema NEUROLOGIC: Awake and alert. Oriented x 3. ASSESSMENT: Non-STEMI Hypertensive emergency, improving History of hypertension PLAN: Obtain 2D echo to assess cardiac structure and function Continue IV heparin Add aspirin and atorvastatin Increase lisinopril to 10 mg daily for optimal blood pressure control Add metoprolol tartrate 25 mg twice a day Check hemoglobin A1c and lipid panel Patient undergo cardiac catheterization today with Dr. Acuña Further recommendations pending patient course Nurse practitioner note has been reviewed by physician. Signing provider agrees with the documented findings, assessment, and plan of care documented by COATER HELPER as a scribe. Past Medical History Past Medical History: No Reported History History of Any Multi-Drug Resistant Organisms: None Reported Additional Past Surgical History / Comment(s): tooth extraction. Past Anesthesia/Blood Transfusion Reactions: No Reported Reaction Past Psychological History: No Psychological Hx Reported Smoking Status: Never smoker Past Alcohol Use History: Occasional Past Drug Use History: None Reported - Past Family History Brother(s) Family Medical History: Cancer Additional Family Medical History / Comment(s): Pancreatic cancer Medications and Allergies Home Medications Medication Instructions Recorded Confirmed Type allopurinoL [Zyloprim] 300 mg PO DAILY 11/01/24 11/01/24 History lisinopriL [Zestril] 5 mg PO DAILY 11/01/24 11/01/24 History Allergies Allergy/AdvReac Type Severity Reaction Status Date / Time Penicillins Allergy Unknown Verified 11/01/24 14:04 Physical Exam Vitals: Vital Signs Temp Pulse Resp BP Pulse Ox 11/01/24 11:22 98.0 F 57 L 22 153/90 100 11/01/24 08:45 97.9 F 60 20 196/101 98 Intake and Output 10/31/24 11/01/24 11/01/24 22:59 06:59 14:59 Other: Weight 72.121 kg Results 11/02/24 08:12 11/01/24 08:48 Cardiac Enzymes 11/01/24 11/01/24 11/01/24 Range/Units 08:48 08:48 11:23 AST 29 (17-59) U/L Troponin I 1.010 H* 0.783 H* (0.000-0.034) ng/mL Coagulation 11/01/24 Range/Units 08:48 PT 10.3 (10.0-12.5) sec APTT 24.4 (22.0-30.0) sec CBC 11/01/24 Range/Units 08:48 WBC 8.25 (4.50-10.00) 10*3/uL RBC 5.12 (4.40-5.60) 10*6/uL Hgb 16.2 (13.0-17.0) g/dL Hct 47.3 (39.6-50.0) % Plt Count 328 (140-440) 10*3/uL Comprehensive Metabolic Panel 11/01/24 Range/Units 08:48 Sodium 138 (137-145) mmol/L Potassium 4.3 (3.5-5.1) mmol/L Chloride 104 (98-107) mmol/L Carbon Dioxide 24 (22-30) mmol/L BUN 17 (9-20) mg/dL Creatinine 0.91 (0.66-1.25) mg/dL Glucose 106 H (74-99) mg/dL Calcium 9.5 (8.4-10.2) mg/dL AST 29 (17-59) U/L ALT 28 (4-49) U/L Alkaline Phosphatase 70 (38-126) U/L Total Protein 6.9 (6.3-8.2) g/dL Albumin 4.4 (3.5-5.0) g/dL Current Medications Generic Name Dose Route Start Last Admin Trade Name Freq PRN Reason Stop Dose Admin Heparin Sodium (Porcine) 0 unit 11/01/24 10:12 Heparin Sodium 1,000 Un/Ml (10ml Vl) IV PER PROTOCOL PRN Low PTT Protocol Heparin Sodium/Sodium Chloride 250 mls @ 8.655 mls/hr 11/01/24 10:15 11/01/24 11:17 25,000 unit/ Sodium Chloride IV 12 units/kg/hr .Q24H KIRILL 8.655 mls/hr Administration Protocol 12 UNITS/KG/HR Sodium Chloride 1,000 mls @ 130 mls/hr 11/01/24 10:45 11/01/24 11:21 Saline 0.9% IV 130 mls/hr .Q7H42M KIRILL Administration Naloxone HCl 0.2 mg 11/01/24 10:45 Naloxone 0.4 Mg/Ml 1 Ml Vial IV Q2M PRN Opioid Reversal Ondansetron HCl 4 mg 11/01/24 10:45 Ondansetron 4 Mg/2 Ml Vial IVP Q8HR PRN Nausea And Vomiting Intake and Output 10/31/24 11/01/24 11/01/24 22:59 06:59 14:59 Other: Weight 72.121 kg Patient Weight 11/02/24 06:59 Weight 72.121 kg 11/01/24 08:48 11/01/24 08:48
[2024-11-02 09:36] LABS: INR 0.9 (<1.2); Prothrombin Time 10.5 sec (10.0-12.5)
[2024-11-02] MEDS: IV FLUID CONTINUATION 1,000 ML IV ONE (09:45)
[2024-11-02 09:46] LABS: ALT 25 U/L (4-49); AST 23 U/L (17-59); African American GFR (CKD) >90 (>60 ml/min/1.73 sqM); Albumin 3.6 g/dL (3.5-5.0); Alkaline Phosphatase 75 U/L (38-126); Anion Gap 6 mmol/L; Blood Urea Nitrogen 8 mg/dL (9-20); Calcium 8.7 mg/dL (8.4-10.2); Carbon Dioxide 25 mmol/L (22-30); Chloride 106 mmol/L (98-107); Glucose 91 mg/dL (74-99); Non-African American GFR(CKD) >90 (>60 ml/min/1.73 sqM); Sodium 137 mmol/L (137-145); Total Bilirubin 0.7 mg/dL (0.2-1.3); Total Protein 5.9 g/dL (6.3-8.2)
[2024-11-02] MEDS: MIDAZOLAM 2 MG/2 ML VIAL IVP ONE (10:06)
[2024-11-02] MEDS: fentaNYL (PF) 50 MCG/ML 2 ML AMP IVP ONE ×2 (10:06)
[2024-11-02] MEDS: LIDOCAINE 1% INJ 10MG/ML (20 ML MDV) SQ ONE (10:08)
[2024-11-02] MEDS: HEPARIN SODIUM,PORCINE 10,000 UNIT in SODIUM CHLORIDE 0.9% 1,000 ML IRRIGATION ONE (10:12)
[2024-11-02] MEDS: HEPARIN SODIUM,PORCINE (1 ML) 2,500 UNIT in SODIUM CHLORIDE 0.9% 250 ML IRRIGATION ONE (10:12)
[2024-11-02] MEDS: VERAPAMIL SYRINGE (5 MG/10 ML) INTRAARTER ONE (10:14)
[2024-11-02] MEDS: HEPARIN SODIUM 1,000 UN/ML (10ML VL) IVP ONE (10:21)
[2024-11-02] MEDS: TICAGRELOR 90 MG TAB PO ONE (10:36)
[2024-11-02] MEDS: NITROGLYCERIN 1000MCG/10ML SYRINGE INTRACORON ONE ×3 (10:54→11:47)
[2024-11-02] MEDS: IOPAMIDOL-370 100ML BTL INJ ONE ×2 (11:14→11:55)
[2024-11-02] MEDS: NITROGLYCERIN-D5W PMX 50 MG in DEXTROSE/WATER 1 250ML.BAG IV ONE (11:47)
[2024-11-02] MEDS ORDERED: HEPARIN SODIUM 1,000 UN/ML (10ML VL) IV PRN (12:47)
--- NOTE | 2024-11-02 12:47 | CC ---
CARDIAC CATHETERIZATION REPORT INDICATION: Acute non ST-segment elevation [place]. PROCEDURE NOTE: After obtaining informed consent, left heart catheterization and coronary angiogram were performed via the right radial artery using standard Jonna catheters. The patient tolerated the procedure well without any obvious immediate complications. The patient received moderate conscious sedation. Total sedation time was 20 minutes. Right radial artery access was obtained using Seldinger technique, 6-Lebanese sheath was placed. Catheters and wires were floated into the ascending aorta under fluoroscopic guidance. The patient received verapamil and heparin per protocol. FINDINGS: 1. Hemodynamics: Left ventricular end-diastolic pressure is 14 to 16 mm. There is no significant gradient across the aortic valve. 2. Left ventriculogram: Left ventriculogram is not performed. 3. Angiographic data: a.Right coronary artery: Right coronary artery is a large dominant vessel that shows a focal 90% stenosis involving the right coronary artery. b.Left main coronary artery is a normal-sized vessel and is free of stenosis. Divides into left anterior descending coronary artery and circumflex coronary artery. LAD shows a focal 80% to 90% stenosis in its midportion. c.Circumflex coronary artery shows mild nonobstructive disease. CONCLUSION: Severe two-vessel coronary artery disease as described above. PLAN: I reviewed angiographic data with Dr. Uribe, the on-call dental hygiene teacher, who will perform angioplasty with stent placement of both these vessels. MMODL / IJN: [id number] /
[2024-11-02] MEDS ORDERED: ATROPINE SULFATE 0.1 MG/ML 10ML SYRINGE IV PRN (12:53)
[2024-11-02] MEDS ORDERED: MAG HYDROX/AL HYDROX/SIMETH 30 ML CUP PO PRN (12:53)
[2024-11-02] MEDS ORDERED: ZOLPIDEM 5 MG TAB PO PRN (12:53)
[2024-11-02] MEDS ORDERED: RX INFO: IV CONTRAST WAS GIVEN 1 EACH MISC MISCELLANE PRN (12:53)
--- NOTE | 2024-11-02 12:53 | P.PRCINT ---
Percutaneous Coronary Int. - Percutaneous Coronary Intervention Percutaneous Coronary Intervention: PROCEDURES PERFORMED: Bilateral coronary angiography, PCI mid RCA with 3.5 x 33 mm Xience FAISAL, postdilated with a 3.5 mm noncompliant balloon, PCI mid LAD with a 3.0 x 33 mm Xience FAISAL, postdilated with a 3.0 mm noncompliant balloon, intravascular ultrasound RCA and LAD. INDICATION: Non-STEMI CONSENT:I have discussed the risks, benefits and alternative therapies for the above-mentioned procedure and for both sedation/analgesia as well as necessary blood product administration, if indicated, as they pertain to this patient. The patient has indicated understanding and acceptance of the risks and procedures discussed. PROCEDURE: After the risks, benefits and alternatives of the above mentioned procedure explained in detail with the patient, informed consent was obtained. Patient was taken to the catheterization lab and prepped and draped in usual fashion. A 6-[place] sheath had been placed in the right radial artery. The decision was made to perform PCI of the RCA and LAD. A 6 [place] AL 0.75 guide was used to engage the RCA. A 0.014 BMW wire was advanced to the distal RCA. Predilation was performed with 2.5 mm balloon. Next intravascular ultrasound was performed which showed reference vessel approximately 3.25 to 3.5 mm. A 3.5 x 33 mm drug-eluting stent was placed in the mid RCA. The stent was postdilated with a 3.5 mm noncompliant balloon. Final angiograms were performed. Repeat intravascular ultrasound was performed and showed no dissection with well-expanded stent. Preintervention there was 90% stenosis and CECI-3 flow and postintervention there was less than 10% stenosis and CECI-3 flow. Next the decision was made to perform PCI of the LAD. A 6 [place] CLS 3.5 guide was used to engage the left main. A 0.014 BMW wire was advanced in the distal LAD. Predilation was performed with a 2.5 x 12 mm balloon. There was small caliber diagonal 1 and diagonal 2 branches however appeared to be less than 2 mm and unlikely to be able to stent or significantly balloon. Intravascular ultrasound was performed which showed diffuse disease of entire proximal LAD and attempted as normal to normal as possible with most normal segment being 3.0 mm. A 3.0 x 33 mm drug-eluting stent was placed in the mid LAD. This did assisted the diagonal 2 branch and patient did have some chest pain with jailing. The stent was postdilated with a 3.0 mm noncompliant balloon. Final angiograms were performed. Preintervention there was 90% stenosis with CECI-3 flow and postintervention there was less than 10% stenosis with CECI-3 flow. The right radial sheath was removed and a TR band was placed with hemostasis achieved. The patient tolerated the procedure well. Patient was transported back to the post catheterization holding area in stable condition. Conscious Sedation: Patient was monitored under the direct supervision of myself for conscious sedation using Versed and fentanyl for a total duration of 66 minutes HEMODYNAMICS: Aorta: 105/72 SELECTIVE CORONARY ARTERIOGRAPHY: LEFT MAIN: The left main is a large caliber vessel which bifurcates into the LAD and circumflex. There is no significant stenosis. LEFT ANTERIOR DESCENDING CORONARY ARTERY: LAD is a large caliber vessel which wraps around to the apex. There is diffuse 30 to 40% proximal LAD stenosis noted more significantly on intravascular ultrasound however more focal 90% mid LAD stenosis at the level of diagonal 1 and diagonal 2 branch. Otherwise there are mild luminal irregularities. LEFT CIRCUMFLEX CORONARY ARTERY: Left circumflex is a moderate caliber vessel with mild luminal irregularities. OM1 has a small caliber 70% mid stenosis. Circumflex appears to be codominant. RIGHT CORONARY ARTERY: The right coronary artery is a large caliber vessel which gives off a PDA branch and is the dominant vessel. There is a focal 90% mid RCA stenosis and otherwise diffuse mild 10 to 20% stenosis. FINAL IMPRESSION: 1. CAD as described above including 90% mid LAD and 90% mid RCA stenosis with small caliber OM1 70% stenosis 2. Status post PCI mid RCA with 3.5 x 33 mm Xience FAISAL, postdilated with a 3.5 mm noncompliant balloon, PCI mid LAD with a 3.0 x 33 mm Xience FAISAL, postdilated with a 3.0 mm noncompliant balloon PLAN: 1. Aggressive risk factor modification per most recent ACC/AHA guidelines. 2. Continue dual antiplatelets with aspirin and Brilinta for 12 months 3. Likely medical therapy of the OM1 however consider further assessment if still has angina 4. Patient having chest pain related to jailing of diagonal branch. Continue with medical therapy however continue with heparin drip and nitro drip for 24 hours and monitor response.
[2024-11-02] MEDS ORDERED: HEPARIN SOD,PORK IN 0.45% NACL 25,000 UNIT in 0.45% NACL 1 250ML.BAG IV SCH (13:00)
[2024-11-02] MEDS: HEPARIN SODIUM 1,000 UN/ML (10ML VL) IV ONE (13:30)
[2024-11-02] MEDS: ALPRAZolam 0.5 MG TAB PO PRN (14:42)
--- NOTE | 2024-11-02 17:01 | CT ---
EXAMINATION TYPE: CT brain wo con DATE OF EXAM: 11/02/2024 4:46 PM COMPARISON: None. CLINICAL INDICATION: Male, 68 years old with history of post heart cath, dizziness, vision loss left lower, post heart cath dizziness TECHNIQUE: Brain: Axial CT images of the brain were obtained with coronal and sagittal reformats created and rev iewed. Contrast used: None. Oral contrast used: None. CT DLP: 1098.4 mGycm, Automated exposure control for dose reduction was used. FINDINGS: Brain: Extra-axial spaces: No abnormal extra-axial fluid collections. Ventricular system: Within normal limits Cerebral parenchyma: Calcified right basal ganglia lesion unknown chronicity. No acute intraparenchym al hemorrhage or mass effect. The infante-white junction is well differentiated. Cerebellum: Unremarkable. Mass effect: No evidence of midline shift. Intracranial vasculature: Atherosclerotic calcifications of the intracranial vessels. Soft tissues: Normal. Calvarium/osseous structures: No depressed skull fracture. Paranasal sinuses and mastoid air cells: Mild scattered paranasal sinus disease. Visualized orbits: Orbital contents are intact. IMPRESSION: No acute intracranial process. [facility], , 11/02/2024 4:58 PM
[2024-11-02] MEDS: METOPROLOL TARTRATE 12.5 MG TAB PO SCH (21:30)
[2024-11-02] MEDS: TICAGRELOR 90 MG TAB PO SCH (21:30)
[2024-11-03] MEDS ORDERED: HEPARIN SODIUM,PORCINE (1 ML) 2,500 UNIT in SODIUM CHLORIDE 0.9% 250 ML IRRIGATION PRN (07:00)
[2024-11-03] MEDS ORDERED: HEPARIN SODIUM,PORCINE 10,000 UNIT in SODIUM CHLORIDE 0.9% 1,000 ML IRRIGATION PRN (07:00)
[2024-11-03 07:40] LABS: Basophils # (A) 0.05 10*3/uL (0.00-0.10); Basophils % (A) 0.5 %; Eosinophils # (A) 0.15 10*3/uL (0.04-0.35); Eosinophils % (A) 1.5 %; HCT 42.2 % (39.6-50.0); HGB 14.8 g/dL (13.0-17.0); Lymphocytes # (A) 1.34 10*3/uL (0.90-5.00); Lymphocytes % (A) 13.7 %; MCH 31.6 pg (27.0-32.0); MCHC 35.1 g/dL (32.0-37.0); MCV 90.2 fL (80.0-97.0); Mean Platelet Volume 9.8 fL (9.5-12.2); Monocytes # (A) 0.62 10*3/uL (0.20-1.00); Monocytes % (A) 6.3 %; Neutrophils % (A) 77.7 %; Platelet Count 286 10*3/uL (140-440); RBC 4.68 10*6/uL (4.40-5.60); RDW 13.1 % (11.5-14.5); WBC 9.79 10*3/uL (4.50-10.00)
[2024-11-03 07:53] LABS: INR 0.9 (<1.2); Prothrombin Time 10.5 sec (10.0-12.5)
--- NOTE | 2024-11-03 09:49 | P.PN ---
Subjective HISTORY OF PRESENT ILLNESS: This is a 68-year-old male with no significant past medical history. 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 We have been asked to see the patient in consultation for non-STEMI. Patient examined at the bedside. Patient states on Monday he was mowing the lawn when he started to have chest discomfort. He states that the pain was in the middle of his chest. He also reports feeling diaphoretic and short of breath. He states it was hot that day though so he was not sure if it was related to the weather. He did go inside and rested and had relief of his pain. He states he has been under a lot of stress lately as his is also currently hospitalized. Patient was found to have elevated troponins and was started on IV heparin. At the time of examination, patient denies any chest pain or pressure. DIAGNOSTICS: - EKG reveals sinus mechanism with no signs of acute ischemia. - Chest xray negative for acute process. - Laboratory data: WBC 8.25. Hemoglobin 16.2. Platelet count 328. Sodium 138. Potassium 4.3. BUN 17. Creatinine 0.91. Troponin 1.010. 0.783. - Current home cardiac medications include lisinopril 5 mg daily - 2D echo obtained this admission reveals EF 55 to 60%, trace to mild mitral regurgitation 11/03/2024 Patient is status postcardiac catheterization revealing 90% mid LAD, 90% mid RCA stenosis and OM1 70% stenosis. Patient underwent PCI of the mid RCA and PCI of the mid LAD. Patient continued to have chest pain after his cardiac catheterization and was put on IV heparin and IV nitro. This morning the patient denies any chest pain or pressure. She denies any shortness of breath. Patient is anxious to be discharged home. Echocardiogram completed revealing ej ection fraction 55 to 60%, no obvious regional wall motion abnormalities, trace to mild mitral regurgitation PHYSICAL EXAM: VITAL SIGNS: Reviewed. GENERAL: Well-developed in no acute distress. HEENT: Head is normocephalic. Pupils are equal, round. Sclerae anicteric. Mucous membranes of the mouth are moist. Neck supple. No JVD or thyromegaly LUNGS: Respirations even and unlabored. Lungs essentially clear to auscultation bilaterally. HEART: Regular rate and rhythm. S1 and S2 heard. ABDOMEN: Soft. Nondistended. Nontender. EXTREMITIES: Normal range of motion. No clubbing or cyanosis. Peripheral pulses intact. No lower extremity edema NEUROLOGIC: Awake and alert. Oriented x 3. ASSESSMENT: Non-STEMI Status post cardiac catheterization with PCI to mid RCA and mid LAD Ongoing chest pain secondary to jailing of diagonal branch Hypertensive emergency, improving History of hypertension PLAN: Discontinue IV heparin. Begin subcu heparin Discontinue nitro infusion. Begin Imdur. Continue additional cardiac medications including aspirin, Lipitor, lisinopril, metoprolol, and Brilinta Continue to monitor patient for additional 24 hours Possible discharge home tomorrow if patient remains chest pain-free Further recommendations pending patient course Nurse practitioner note has been reviewed by physician. Signing provider agrees with the documented findings, assessment, and plan of care documented by LAND COMMISSIONER as a scribe. Objective - Vital Signs Vital signs: Vital Signs Temp 97.7 F 11/03/24 04:00 Pulse 62 11/03/24 04:00 Resp 16 11/03/24 04:00 BP 132/75 11/03/24 04:00 Pulse Ox 96 11/03/24 04:00 FiO2 Intake & Output 11/02/24 11/03/24 11/03/24 18:59 06:59 18:59 Intake Total 1055.63 66.37 480 Balance 1055.63 66.37 480 Weight 67 kg Intake: IV 872 Intake, IV Titration 183.63 66.37 Amount Heparin Sod,Pork in 0.45% 183.63 66.37 NaCl 25,000 unit In 0.45 % NaCl 1 250ml.bag @ 12 UNITS/KG/HR 8.655 mls/hr IV .Q24H [facility] Rx#: [id number] Oral 480 Other: Voiding Method Toilet Toilet # Voids 1 1 - Labs CBC & Chem 7: 11/03/24 07:11 11/02/24 08:12 Labs: Abnormal Lab Results - Last 24 Hours (Table) 11/02/24 11/02/24 11/03/24 Range/Units 08:12 18:41 07:11 APTT 63.1 H 35.7 H (22.0-30.0) sec BUN 8 L (9-20) mg/dL Total Protein 5.9 L (6.3-8.2) g/dL
[2024-11-03 09:59] VITALS: RESP 18
[2024-11-03] MEDS: ISOSORBIDE MONONITRATE ER 30 MG TAB.ER.24H PO SCH (10:13)
--- NOTE | 2024-11-03 12:34 | P.PN ---
Subjective Progress Note Date: 11/03/24 Principal diagnosis: Chest pain ,coronary artery disease Patient status post cardiac cath with angioplasty to vessels with stent placement patient is awake alert vital signs are stable patient is currently afebrile Objective - Vital Signs Vital signs: Vital Signs Temp 97.7 F 11/03/24 12:00 Pulse 66 11/03/24 12:00 Resp 18 11/03/24 12:00 BP 78/51 11/03/24 12:00 Pulse Ox 100 11/03/24 12:00 FiO2 Intake & Output 11/02/24 11/03/24 11/03/24 18:59 06:59 18:59 Intake Total 1055.63 66.37 585.735 Balance 1055.63 66.37 585.735 Weight 67 kg Intake: IV 872 Intake, IV Titration 183.63 66.37 105.735 Amount Heparin Sod,Pork in 0.45% 183.63 66.37 105.735 NaCl 25,000 unit In 0.45 % NaCl 1 250ml.bag @ 12 UNITS/KG/HR 8.655 mls/hr IV .Q24H [facility] Rx#: [id number] Oral 480 Other: Voiding Method Toilet Toilet Toilet # Voids 1 1 - Exam General: [Patient awake, alert and oriented times 3. Patient in no acute distress.] HEENT: [PERRL. EOMI. No pharyngeal erythema or exudate.] Neck: [No adenopathy.] Cardiac: [Heart regular in rate and rhythm. No S3. No S4. No clicks, rubs. No murmur.] Lungs: [Clear to auscultation bilaterally.] Abdomen: [No mass. No organomegaly. Bowel sounds presnt and normoactive in all 4 quadrants.] Extremes: [No edema no cyanosis no claudication normal pulses] : Normal male genitalia Musculoskeletal: [No joint erythema, edema or tenderness.] Skin: [No rash.] Neurologic: [No lateralizing deficits. CN II - XII grossly intact.] Lymphatic: [No adenopathy.] - Labs CBC & Chem 7: 11/03/24 07:11 11/02/24 08:12 Labs: Abnormal Lab Results - Last 24 Hours (Table) 11/02/24 11/03/24 Range/Units 18:41 07:11 APTT 63.1 H 35.7 H (22.0-30.0) sec Assessment and Plan (1) Acute non-ST elevation myocardial infarction (NSTEMI) Narrative/Plan: Status post angioplasty with stent placement Current Visit: Yes Status: Acute Code(s): I21.4 - NON-ST ELEVATION (NSTEMI) MYOCARDIAL INFARCTION SNOMED Code(s): 829424072 (2) Abdominal pain Narrative/Plan: Consistent with diverticular disease Current Visit: No Status: Acute Code(s): R10.9 - UNSPECIFIED ABDOMINAL PAIN SNOMED Code(s): 40155967 (3) Diverticulitis Narrative/Plan: Will workup as outpatient Current Visit: No Status: Acute Code(s): K57.92 - DVTRCLI OF INTEST, PART UNSP, W/O PERF OR ABSCESS W/O BLEED SNOMED Code(s): 638948085 Plan: Status post PTCA with stent placement 2 vessels Time with Patient: Greater than 30
[2024-11-03] MEDS: SODIUM CHLORIDE 0.9% 500 ML 500 ML IV ONE (12:43)
[2024-11-03 13:08] LABS: Basophils # (A) 0.04 10*3/uL (0.00-0.10); Basophils % (A) 0.4 %; Eosinophils # (A) 0.23 10*3/uL (0.04-0.35); HCT 42.3 % (39.6-50.0); HGB 14.4 g/dL (13.0-17.0); Lymphocytes # (A) 1.37 10*3/uL (0.90-5.00); Lymphocytes % (A) 12.2 %; MCH 31.6 pg (27.0-32.0); MCV 92.8 fL (80.0-97.0); Mean Platelet Volume 9.7 fL (9.5-12.2); Monocytes % (A) 7.1 %; Neutrophils # (A) 8.77 10*3/uL (1.80-7.70); Neutrophils % (A) 77.9 %; Platelet Count 339 10*3/uL (140-440); RBC 4.56 10*6/uL (4.40-5.60); RDW 13.2 % (11.5-14.5); WBC 11.26 10*3/uL (4.50-10.00)
[2024-11-03 13:25] LABS: Potassium 4.3 mmol/L (3.5-5.1)
--- NOTE | 2024-11-03 14:27 | P.CNNES ---
History of Present Illness Consult date: 11/03/24 Reason for Consult: Vision loss, left lower periphery, dizziness, flashes of light, status post History of Present Illness: The patient is a 68-year-old male who was seen in neurologic consultation on November 03, 2024, in collaboration with Patria Tobar, via teleneurology. History is obtained from the patient. The patient presented to the emergency department because of chest pain. He underwent cardiac catheterization. Apparently following the cardiac catheterization the patient had reported headache, chest pain, colored, wavy lines in his left eye. He states that he initially noticed it the left lower corner of the vision from his left eye then when he turned his left eye, to the right this abnormal object would move to the right. The patient denies similar visual symptoms involving his right eye. The patient denies a history of migraine headaches and migraine aura. The patient states that his headache which was occurring simultaneously, was located in the frontal aspect of his head. The patient reports that the headache itself lasted for about 15 minutes and the visual symptoms lasted for approximately 1 hour. The patient states that he subsequently went to sleep and the symptoms resolved. Until the time of our examination, the patient denies return of his visual symptoms. During the examination, the patient noted a white, small curved line, in the lower half of the vision from his left eye. The patient reported pain in his eye, when looking to the left. The patient's initial headache occurred while he was receiving nitroglycerin. The patient denies a history of floaters and similar visual symptoms. He denies other associated symptoms. There is no reported weakness, numbness or ataxia. No difficulty with speech. CT scan of the brain was performed, associated with the symptoms. There was no reported evidence of acute hemorrhage or infarct. Past Medical History Past Medical History: No Reported History History of Any Multi-Drug Resistant Organisms: None Reported Additional Past Surgical History / Comment(s): tooth extraction. Past Anesthesia/Blood Transfusion Reactions: No Reported Reaction Past Psychological History: No Psychological Hx Reported Smoking Status: Never smoker Past Alcohol Use History: Occasional Past Drug Use History: None Reported - Past Family History Brother(s) Family Medical History: Cancer Additional Family Medical History / Comment(s): Pancreatic cancer Medications and Allergies Home Medications Medication Instructions Recorded Confirmed Type allopurinoL [Zyloprim] 300 mg PO DAILY 11/01/24 11/01/24 History lisinopriL [Zestril] 5 mg PO DAILY 11/01/24 11/01/24 History Allergies Allergy/AdvReac Type Severity Reaction Status Date / Time Penicillins Allergy Unknown Verified 11/01/24 14:04 Physical Examination - Vital Signs Vital Signs: Vital Signs Temp Pulse Pulse Resp BP Pulse Ox 11/03/24 04:00 97.7 F 62 16 132/75 96 11/03/24 01:14 16 11/02/24 23:05 98.4 F 68 16 111/72 98 11/02/24 20:00 97.9 F 58 L 65 16 113/66 98 11/02/24 16:38 58 L 16 115/77 98 11/02/24 15:38 62 16 115/77 98 11/02/24 14:38 63 16 104/69 98 11/02/24 14:08 63 16 126/69 96 11/02/24 14:00 62 16 11/02/24 13:38 62 16 123/71 98 11/02/24 13:23 45 L 18 125/72 98 11/02/24 13:08 52 L 18 108/50 97 11/02/24 12:53 48 L 18 107/69 99 11/02/24 12:00 59 L 59 L 18 134/77 97 Intake and Output 11/02/24 11/03/24 11/03/24 22:59 06:59 14:59 Intake Total 66.37 480 Balance 66.37 480 Intake: Intake, IV Titration 66.37 Amount Heparin Sod,Pork in 0.45% 66.37 NaCl 25,000 unit In 0.45 % NaCl 1 250ml.bag @ 12 UNITS/KG/HR 8.655 mls/hr IV .Q24H [facility] Rx#: [id number] Oral 480 Other: Voiding Method Toilet Toilet # Voids 0 1 Weight 67 kg General: The patient is reclining in the bed, well-nourished, well-developed and in no acute distress HEENT: Head is atraumatic, normocephalic. Fundus not visualized. There is no scleral icterus. Mucous membranes are moist. Neck: Supple without carotid bruits Heart: Regular rate and rhythm Lungs: No obvious shortness of breath or cough Extremities: Without edema Neurological examination Mental status: The patient is awake, alert and oriented x 3. Speech is clear. There is no dysarthria or aphasia. Cranial nerves: Pupils are equal at 3 mm and reactive. Visual meyer are full to confrontation. There is no nystagmus. Facial sensation is intact. There is no facial asymmetry. Hearing is grossly intact. Uvula and palate are midline. Shoulder shrug is symmetric. Tongue protrudes midline. Motor: Strength is 5/5 in the bilateral upper and lower extremities. Sensation: Intact to light touch throughout. There is no extinction with double simultaneous stimulation. Coordination: Ugxiqd-ur-[id number], rapid alternating movements and mrtw-px-tbqe testing are intact. There is no pronator drift. Deep tendon reflexes: 2+/4+ throughout. Gait: Not assessed Results CT scan of the brain images have been personally viewed. I agree with the radiology report - Laboratory Findings CBC and BMP: 11/03/24 12:48 11/03/24 12:48 Abnormal Lab Findings: Abnormal Labs 11/01/24 11/01/24 11/01/24 08:48 08:48 08:48 MPV 9.4 L APTT BUN Glucose 106 H Troponin I 1.010 H* Total Protein 11/01/24 11/01/24 11/01/24 11:23 16:14 16:14 MPV APTT 54.7 H BUN Glucose Troponin I 0.783 H* 0.755 H* Total Protein 11/02/24 11/02/24 11/03/24 08:12 18:41 07:11 MPV APTT 63.1 H 35.7 H BUN 8 L Glucose Troponin I Total Protein 5.9 L Assessment and Plan Assessment: 1. Vision abnormalities, left eye. The patient has a normal neurological examination. There are no focal or lateralizing findings on exam. I am concer hannah that the patient visual symptoms are specifically related to his-possible floaters versus retinal detachment versus posterior vitreous tear 2. Chest pain-NSTEMI, status post cardiac catheterization with stent placement 3. Hypertensive urgency-blood pressure in the emergency department 196/ Plan: 1. Would recommend ophthalmology consultation 2. Blood pressure control 3. Antiplatelet therapy as recommended per cardiology Thank you for allowing us to participate in care of this patient Dr. Miguel will assume neurologic coverage of this patient as of November 04, 2024 Time with Patient: Greater than 30 (65 minutes were spent caring for this patient today including, obtaining history, examining the patient, reviewing imaging, chart documentation, labs, placing orders and creating this note)
[2024-11-03] MEDS: ATORVASTATIN 80 MG TAB PO SCH (21:06)
[2024-11-04 03:24] VITALS: TEMP 98.1
[2024-11-04 08:50] VITALS: BP 112/69; PULSE 84
--- NOTE | 2024-11-04 09:14 | P.DS ---
Providers Date of admission: 11/01/24 10:45 Expected date of discharge: 11/04/24 Attending physician: Kody Del Castillo Consults: 11/01/24 10:45 Consult Physician Routine Consulting Provider: Cardiology Oliver Consult Reason/Comments: NSTEMI Do you want consulting provider notified?: Yes 11/02/24 12:53 Consult Physician Routine Consulting Provider: Cardiology Oliver Consult Reason/Comments: Post Interventional Patient Do you want consulting provider notified?: Already Contacted 11/02/24 15:26 Consult Physician Urgent Consulting Provider: Toby Cardona Consult Reason/Comments: vision loss left lower periphery, dizziness, flashes of light, post heart c Do you want consulting provider notified?: Yes Primary care physician: [facility] Course: Final Diagnosis: Acute NSTEMI, status post cardiac catheterization with PCI to mid RCA mid LAD Hypertensive urgency on admission, resolved Hypertension, history, blood pressures currently soft Left eye vision abnormalities postprocedure, evaluated by neurology recommending ophthalmology follow-up Hospital course:Chief Complaint: Chest pain This is a pleasant 68-year-old gentleman with past medical history significant for hypertension ,under significant stress as his with cancer hospitalized. Reports he has had on and off nonradiating midsternal chest pain over the last couple of weeks, worsened on Monday when patient was mowing the lawn in the hot 84 degrees heat.reports he developed 10 out of 10 midsternal chest pain accompanied by diaphoresis and shortness of breath .reports worsened by exertional activity, relieved with rest. He proceeded inside, as his pain increased to 10/10, reclined back in his recliner, and drank some ice cold water. Within an hour, pain had subsided. Does not recall nausea or vomiting. evaluated by his PCP Dr. Del Castillo this morning and patient was transferred by EMS to the ER for further cardiac evaluation. On admission patient was hypertensive with a blood pressure 196/101. currently denies chest pain, palpitations or shortness of breath. Troponins are elevated at 1.010, 0.783 .EKG reported sinus bradycardia. Chest x-ray reported no acute cardiopulmonary disease process. Hematology, coagulation unremarkable. Electrolytes, renal function stable. Patient does disclose that years ago he did have a normal stress test during a cardiac workup prior to having knee surgery. Underwent cardiac catheterization reporting 90% mid LAD and 90% mid RCA stenosis with small caliber OM I 70% stenosis, status post PCI mid RCA, PCI mid LAD. Maintained on dual antiplatelet therapy with aspirin and Brilinta. Medical therapy of the TIM recommending medical therapy. Postprocedure, cardiology reported patient was having chest pain related to jailing of the diagonal branch-continued on medical therapy in addition to heparin drip and nitro drip for 24 hrs. Imdur added to med regimen yesterday. this morning patient declines chest pain, palpitations or shortness of breath. Blood pressures soft throughout the night, this morning 112/69, heart rate 84. TAYLOR inhibitor discontinued. Patient will be discharged home today in a stable condition with guarded prognosis pending final DC recommendations and clearance per cardiology. The impression and plan of care has been dictated as directed. : I performed a history and examination of this patient, discussed the same with the dictator. I agree with the dictator's note ,documented as a scribe. Any additional findings or plans will be noted. Patient Condition at Discharge: Stable Plan - Discharge Summary Discharge Rx Participant: No New Discharge Prescriptions: New Metoprolol Tartrate [Lopressor] 12.5 mg PO BID #60 tab Ticagrelor [Brilinta] 90 mg PO BID #60 tab Aspirin EC [Ecotrin Low Dose] 81 mg PO DAILY #30 tab Isosorbide Mononitrate ER [Imdur] 30 mg PO DAILY #30 tab Atorvastatin [Lipitor] 80 mg PO HS #30 tab Nitroglycerin Sl Tabs [Nitrostat] 0.4 mg SUBLINGUAL Q5M PRN #100 tab PRN Reason: Chest Pain Continue lisinopriL [Zestril] 5 mg PO DAILY No Action allopurinoL [Zyloprim] 300 mg PO DAILY Discharge Medication List allopurinoL [Zyloprim] 300 mg PO DAILY 11/01/24 [History] lisinopriL [Zestril] 5 mg PO DAILY 11/01/24 [History] Aspirin EC [Ecotrin Low Dose] 81 mg PO DAILY #30 tab 11/04/24 [Rx] Atorvastatin [Lipitor] 80 mg PO HS #30 tab 11/04/24 [Rx] Isosorbide Mononitrate ER [Imdur] 30 mg PO DAILY #30 tab 11/04/24 [Rx] Metoprolol Tartrate [Lopressor] 12.5 mg PO BID #60 tab 11/04/24 [Rx] Nitroglycerin Sl Tabs [Nitrostat] 0.4 mg SUBLINGUAL Q5M PRN #100 tab 11/04/24 [Rx] Ticagrelor [Brilinta] 90 mg PO BID #60 tab 11/04/24 [Rx] Follow up Appointment(s)/Referral(s): Kody Del Castillo Jr, [Primary Care Provider] - 3 Days Ophthalmology, Of patient's choice [Other] - 1 Week (Left eye vision abnormalities post cardiac catheterization)
--- NOTE | 2024-11-04 12:46 | P.PN ---
Subjective Progress Note Date: 11/04/24 HISTORY OF PRESENT ILLNESS: This is a 68-year-old male with no significant past medical history. 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 We have been asked to see the patient in consultation for non-STEMI. Patient examined at the bedside. Patient states on Monday he was mowing the lawn when he started to have chest discomfort. He states that the pain was in the middle of his chest. He also reports feeling diaphoretic and short of breath. He states it was hot that day though so he was not sure if it was related to the weather. He did go inside and rested and had relief of his pain. He states he has been under a lot of stress lately as his is also currently hospitalized. Patient was found to have elevated troponins and was started on IV heparin. At the time of examination, patient denies any chest pain or pressure. DIAGNOSTICS: - EKG reveals sinus mechanism with no signs of acute ischemia. - Chest xray negative for acute process. - Laboratory data: WBC 8.25. Hemoglobin 16.2. Platelet count 328. Sodium 138. Potassium 4.3. BUN 17. Creatinine 0.91. Troponin 1.010. 0.783. - Current home cardiac medications include lisinopril 5 mg daily - 2D echo obtained this admission reveals EF 55 to 60%, trace to mild mitral regurgitation 11/03/2024 Patient is status postcardiac catheterization revealing 90% mid LAD, 90% mid RCA stenosis and OM1 70% stenosis. Patient underwent PCI of the mid RCA and PCI of the mid LAD. Patient continued to have chest pain after his cardiac catheterization and was put on IV heparin and IV nitro. This morning the patient denies any chest pain or pressure. She denies any shortness of breath. Patient is anxious to be discharged home. Echocardiogram completed revealing ejection fraction 55 to 60%, no obvious regional wall motion abnormalities, trace to mild mitral regurgitation 11/04/2024 Patient seen and examined. Patient's blood pressure has been on the low side for which lisinopril was held this morning we will plan to discontinue it. EKG reviewed by Dr. Acuña. Patient denies chest pain or chest pressure. He is very anxious to be discharged home today. PHYSICAL EXAM: VITAL SIGNS: Reviewed. GENERAL: Well-developed in no acute distress. HEENT: Head is normocephalic. Pupils are equal, round. Sclerae anicteric. Mucous membranes of the mouth are moist. Neck supple. No JVD or thyromegaly LUNGS: Respirations even and unlabored. Lungs essentially clear to auscultation bilaterally. HEART: Regular rate and rhythm. S1 and S2 heard. ABDOMEN: Soft. Nondistended. Nontender. EXTREMITIES: Normal range of motion. No clubbing or cyanosis. Peripheral pulses intact. No lower extremity edema NEUROLOGIC: Awake and alert. Oriented x 3. ASSESSMENT: Non-STEMI Status post cardiac catheterization with PCI to mid RCA and mid LAD Ongoing chest pain secondary to jailing of diagonal branch Hypertensive emergency, improving History of hypertension PLAN: Continue Imdur. Continue additional cardiac medications including aspirin, Lipitor, metoprolol, and Brilinta Discontinue lisinopril due to hypotension Patient is cleared for discharge from cardiology and will follow-up in the office with Dr. Acuña in 2 weeks. Nurse practitioner note has been reviewed by physician. Signing provider agrees with the documented findings, assessment, and plan of care documented by SURVEILLANCE OBSERVER as a scribe. Objective - Vital Signs Vital signs: Vital Signs Temp 98.1 F 11/04/24 03:23 Pulse 84 11/04/24 08:00 Resp 18 11/04/24 08:00 BP 112/69 11/04/24 08:00 Pulse Ox 99 11/04/24 08:00 FiO2 Intake & Output 11/03/24 11/04/24 11/04/24 18:59 06:59 18:59 Intake Total 1065.735 Balance 1065.735 Weight 68.5 kg Intake: Intake, IV Titration 105.735 Amount Heparin Sod,Pork in 0.45% 105.735 NaCl 25,000 unit In 0.45 % NaCl 1 250ml.bag @ 12 UNITS/KG/HR 8.655 mls/hr IV .Q24H [facility] Rx#: [id number] Oral 960 Other: Voiding Method Toilet Toilet # Voids 2 1 - Labs CBC & Chem 7: 11/03/24 12:48 11/03/24 12:48 Labs: Abnormal Lab Results - Last 24 Hours (Table) 11/03/24 11/03/24 Range/Units 12:48 12:48 WBC 11.26 H (4.50-10.00) 10*3/uL Immature Gran # 0.05 H (0.00-0.04) 10*3/uL Neutrophils # 8.77 H (1.80-7.70) 10*3/uL Sodium 134 L (137-145) mmol/L
== END 2024-11-04 09:52 | disposition home or self-care (01) | DRG 322 ==
LOC: EC 08:44 → 3SCARD 10:45
PROVIDERS: ADMIT Family Medicine; ATTEND Family Medicine
PROC: 027135Z Dilation of Coronary Artery, Two Arteries with Two Drug-eluting Intraluminal Devices, Percutaneous Approach (ICD-10-PCS; principal; 2024-11-02 09:32)
PROC: 4A023N7 Measurement of Cardiac Sampling and Pressure, Left Heart, Percutaneous Approach (ICD-10-PCS; 2024-11-02 09:32)
PROC: B2111ZZ Fluoroscopy of Multiple Coronary Arteries using Low Osmolar Contrast (ICD-10-PCS; 2024-11-02 09:32)
PROC: B241ZZ3 Ultrasonography of Multiple Coronary Arteries, Intravascular (ICD-10-PCS; 2024-11-02 09:32)
DX: I21.4 Non-ST elevation (NSTEMI) myocardial infarction (principal); I16.1 Hypertensive emergency; K57.32 Diverticulitis of large intestine without perforation or abscess without bleeding; H54.62 Unqualified visual loss, left eye, normal vision right eye; R00.1 Bradycardia, unspecified; I10 Essential (primary) hypertension; I25.10 Atherosclerotic heart disease of native coronary artery without angina pectoris; Z79.899 Other long term (current) drug therapy; Z88.0 Allergy status to penicillin
CPT/HCPCS: 36415; 70450; 71046; 80051; 80053; 83735; 84484; 85025; 85610; 85730; 92978; 92979; 93005; 93306; 93458; 96365; 96366; 99291